=== PATIENT | male | born 1950 | race Caucasian/White ===

== ENCOUNTER 2021-12-28 08:48 | Outpatient (REF) | payer MEDICARE, BC, SELFPAY ==
[2021-12-28 09:15] LABS: COVID-19 Test Negative (Negative)
== END 2021-12-28 08:49 | disposition home or self-care (01) ==
LOC: HO.LAB 08:48
PROVIDERS: Visit Provider Internal Medicine
DX: Z20.822 Contact with and (suspected) exposure to COVID-19 (principal)
CPT/HCPCS: 87635; C9803

== ENCOUNTER 2022-10-09 20:33 | Inpatient (IN) | payer MEDICARE, BC, SELFPAY ==
--- NOTE | ~2022-10-09 | XR_ITS ---
EXAMINATION: XR HIP, RIGHT CLINICAL INFORMATION: Hip pain. Question dislocation COMPARISON: None TECHNIQUE: AP pelvis and 2 views of the right hip. FINDINGS: Displaced right femoral neck fracture with external rotation of the femur. No dislocation. Bilateral hip joint spaces are maintained. No additional fracture. Pubic symphysis and SI joints are congruent and intact. Mild subchondral sclerosis at the SI joints bilaterally. XR/XR hip RT min 2V IMPRESSION: 1. Displaced right femoral neck fracture. 2. No dislocation.
--- NOTE | ~2022-10-09 | XR_ITS ---
EXAMINATION: XR CHEST CLINICAL INFORMATION: Preop for right femoral neck fracture COMPARISON: None TECHNIQUE: Frontal view of the chest was obtained. FINDINGS: Minimal subsegmental atelectasis or pulmonary vascular crowding in the medial left lung base. No airspace consolidation. No pleural effusion or pneumothorax. Normal cardiomediastinal silhouette and pulmonary vascularity. No acute osseous injury identified. XR/XR chest 1V IMPRESSION: No acute pulmonary process.
[2022-10-09 20:42] VITALS: BP 170/80; PULSE 81; RESP 18; TEMP 36.3; O2SAT 98; BMI 26.1
--- NOTE | 2022-10-09 20:54 | ED_ITS ---
HPI - Fall General Chief Complaint: Fall Stated Complaint: Fall Time Seen by Provider: 10/09/22 20:35 Source: patient Mode of arrival: ambulatory Limitations: no limitations History of Present Illness HPI Narrative: This is a 72-year-old male history of GERD, hypertension presenting to the emergency department with complaints of right hip pain status post injury while playing pickleball. Patient tells me that he was diving for a ball and fell on the ground landing on his right hip, he tells me he landed on concrete immediately started experiencing severe pain. Pain is worse with movement better at rest. He tells me that he is unable to lift his right leg, denies numbness or tingling associated with this. When he fell he did not hit his head, not on blood thinners. Reports that the pain is severe in nature 10/10 with movement. Patient unable to ambulate and was helped out of his vehicle. Patient denies fevers, chills, loss of consciousness, chest pain, shortness of breath. Last time patient had something to eat was around 17:00. Patient appears uncomfortable upon arrival. Related Data Allergies Allergy/AdvReac Type Severity Reaction Status Date / Time Unable to Assess Allergy Verified 10/09/22 21:04 Review of Systems Review of Systems: Constitutional : No Weight loss, No Fever, No Chills, No Fatigue, No Malaise ENT/Mouth : No sore throat, No Rhinorrhea Eyes: No Eye Pain, No Swelling, No Redness Cardiovascular : No Chest Pain, No SOB, No Dyspnea on Exertion, No Orthopnea, No Edema, No Palpitations Respiratory : No Cough, No Sputum, No Wheezing Gastrointestinal : No Nausea, No Vomiting, No Diarrhea, No Constipation, No abdominal Pain, No Hematochezia, No Melena Genitourinary : No Dysuria, No Urinary Frequency, No Hematuria, Musculoskeletal : + joint pain, No Myalgias, No Joint Swelling Skin : No Skin Lesions, No rash Neuro : No Weakness, No Numbness, No Dizziness, No Headache Psych : No Anxiety/Panic, No Depression All other systems reviewed and are negative Yes all other systems are reviewed and are negative [facility] Past Medical History Attestation statement: The following information was validated with the patient. Source: old records reviewed and nursing notes reviewed Social History Social History Advance Directives: No Advance Directives Information Provided: No Physical Exam Vital Signs: Vital Signs: Last Vital Signs Temp 98.5 F 10/09/22 21:28 Pulse 77 10/09/22 21:28 Resp 16 10/09/22 21:28 BP 161/80 H 10/09/22 21:28 Pulse Ox 96 10/09/22 21:28 O2 Del Method 10/09/22 21:28 BMI result Body Mass Index 26.1 vss Appearance: Alert.? Oriented X3.? No acute distress.? Head: Normocephalic, atraumatic, no step-offs or deformities Eyes: Pupils equal, round and reactive to light.? ENT: Pharynx normal.? Neck: Normal inspection.? Neck supple.? CVS: Normal heart rate and rhythm.? Pulses normal.? Respiratory: No respiratory distress.? Breath sounds normal.? Abdomen: Soft and nontender.? Skin: Skin warm and dry.? Normal skin color.? Normal skin turgor.? Extremities: No lower extremity edema.? No calf ttp. 5/5 strength to bilateral upper and left lower lower extremity. Unable to assess strength right lower extremity. Patient unable to lift his right lower extremity off the bed. Right lower extremity appears to be externally rotated and shortened. 2+ dorsalis pedis, posterior tibialis, anterior tibialis and popliteal pulses equal bilateral. Normal sensation to lower extremities. Back: No midline tenderness, no C-spine tenderness, full range of motion, no CVA tenderness bilaterally Neuro: Oriented X 3.? No motor deficit.? No sensory deficit. CN 2-12 intact . Normal [id number], [id number], steady tandem gait. Course Reevaluation(s) Reevaluation #1: CBC appears to be within normal limits. Chemistry with no acute electrolyte a bnormalities requiring intervention. Coags do not require intervention. Wet read of x-ray of right hip shows a displaced right femoral neck fracture, no dislocation. Hedrick text to Orthopedics. Time: 21:50 Reevaluation #2: Orthopedics recommends admitting to Medicine, they will follow. At this time placed preop chest x-ray, type and screen orders. Will speak to patient, patient will be admitted to the hospital for further intervention and treatment. Time: 21:55 Medications Administered Discontinued Medications Generic Name Dose Route Start Last Admin Trade Name Freq PRN Reason Stop Dose Admin Morphine Sulfate 4 mg 10/09/22 20:37 10/09/22 21:04 Morphine Sulfate 4 Mg/Ml Cartridge IVPUSH 10/09/22 20:38 4 mg ONCE ONE Administration Protocol MDM - Fall MDM Narrative Medical decision making narrative: 2049 72-year-old male presents with right hip pain status post landing on his hip while playing pickleball. Reports severe pain. On exam 5/5 strength to bilateral upper and left lower lower extremity. Unable to assess strength right lower extremity. Patient unable to lift his right lower extremity off the bed. Right lower extremity appears to be externally rotated and shortened. 2+ dorsalis pedis, posterior tibialis, anterior tibialis and popliteal pulses equal bilateral. Normal sensation to lower extremities. Concerns for possible hip dislocation, anterior. Or pelvic/femoral fracture. Plan at this time is to obtain imaging, laboratory studies, PT INR. Will give him pain meds. Medical Records Attestation: I reviewed the patient's medical records. Lab Data Attestation: I reviewed the patient's lab results. Result diagrams: 10/09/22 21:02 10/09/22 21:02 Labs: Lab Results 10/09/22 10/09/22 10/09/22 Range/Units 21:02 21:02 21:02 WBC 10.3 (4.8-10.8) X10*3/uL RBC 4.76 (4.60-5.80) X10*6/uL Hgb 14.8 (14.0-18.0) g/dl Hct 42.7 (42.0-52.0) % MCV 89.7 (80.0-98.0) fL MCH 31.1 (27.0-33.0) pg MCHC 34.7 (31.0-36.0) g/dl RDW 12.7 (11.0-16.0) % Plt Count 239 (160-400) X10*3/uL MPV 10.1 (9.4-12.4) fL Immature Gran % (Auto) 0.4 (0.0-0.4) % Neut % (Auto) 78.0 H (45-73) % Lymph % (Auto) 13.3 L (20-40) % [place] % (Auto) 7.2 (2-11) % Eos % (Auto) 0.5 (0-4) % Baso % (Auto) 0.6 (0-2) % Lymph # (Auto) 1.4 (1.2-4.9) X10*3/uL [place] # (Auto) 0.7 (0.1-1.2) X10*3/uL Eos # (Auto) 0.1 (0.0-0.4) X10*3/uL Baso # (Auto) 0.1 (0.0-0.2) X10*3/uL Abs Immat Gran (auto) 0.04 H (0.00-0.03) X10*3/uL Absolute Neuts (auto) 8.1 (2.0-8.3) x10*3/uL Absolute Nucleated RBC 0.000 (0.0-0.012) X10*3/uL Nucleated RBC % (auto) 0.0 (0.0-0.2) /100WBC PT 13.2 H (10.0-13.1) SEC INR 1.1 (0.9-1.1) Sodium 141 (135-145) mmol/L Potassium 4.2 (3.3-5.1) mmol/L Chloride 108 (96-108) mmol/L Carbon Dioxide 23 (22-29) mmol/L Anion Gap 14 (12-20) BUN 21 H (9-16) mg/dL Creatinine 1.01 (0.5-1.4) mg/dL Estim Creat Clear Calc 64.1 Estimated GFR > 60 Random Glucose 120 H (60-115) mg/dL Calcium 9.3 (8.4-10.2) mg/dL Magnesium 2.0 (1.6-2.6) mg/dL Total Bilirubin 1.0 (0.0-1.0) mg/dL AST 29 (5-37) U/L ALT 29 (0-40) U/L Alkaline Phosphatase 119 H (39-117) U/L Total Protein 6.8 (6.5-8.0) g/dL Albumin 4.1 (3.5-5.0) g/dL Critical Care Time Critical Care Time Critical Care Time: Yes Total Critical Care Time: 35 Attestation: I attest to this time spent taking care of the patient, obtaining history, physical, reviewing labs, imaging, speaking to my attending, speaking to specialist. Discharge Plan Discharge Clinical Impression: Femoral neck fracture Patient Disposition: Admitted As Inpatient
[2022-10-09 21:04] VITALS: RESP 18
[2022-10-09] MEDS: Morphine Sulfate 4 MG/ML CARTRIDGE IVPUSH (21:04)
[2022-10-09 21:06] LABS: MANUAL DIFF FLAG NO
[2022-10-09 21:12] LABS: Basophils Absolute Auto 0.1 X10*3/uL (0.0-0.2); Basophils Percent Auto 0.6 % (0-2); Eosinophils Absolute Auto 0.1 X10*3/uL (0.0-0.4); Eosinophils Percent Auto 0.5 % (0-4); Hematocrit 42.7 % (42.0-52.0); Hemoglobin 14.8 g/dl (14.0-18.0); Imm Gran Abs Auto 0.04 X10*3/uL (0.00-0.03); Imm Gran Pct Auto 0.4 % (0.0-0.4); Lymphocytes Absolute Auto 1.4 X10*3/uL (1.2-4.9); Lymphocytes Percent Auto 13.3 % (20-40); Mean Corpuscular HGB Conc 34.7 g/dl (31.0-36.0); Mean Corpuscular Hemoglobin 31.1 pg (27.0-33.0); Mean Corpuscular Volume 89.7 fL (80.0-98.0); Mean Platelet Volume 10.1 fL (9.4-12.4); Monocytes Absolute Auto 0.7 X10*3/uL (0.1-1.2); Monocytes Percent Auto 7.2 % (2-11); Neutrophils Absolute Auto 8.1 x10*3/uL (2.0-8.3); Platelet Count 239 X10*3/uL (160-400); Red Blood Count 4.76 X10*6/uL (4.60-5.80); Red Cell Distribution Width 12.7 % (11.0-16.0); White Blood Count 10.3 X10*3/uL (4.8-10.8)
[2022-10-09 21:22] LABS: INTERNATIONAL NORM RATIO 1.1 (0.9-1.1); Prothrombin Time 13.2 SEC (10.0-13.1)
[2022-10-09 21:28] VITALS: BP 161/80; PULSE 77; RESP 16; TEMP 36.9; O2SAT 96
[2022-10-09 21:37] LABS: Alanine Aminotransferase 29 U/L (0-40); Albumin Level 4.1 g/dL (3.5-5.0); Alkaline Phosphatase 119 U/L (39-117); Anion Gap 14 (12-20); Aspartate Amino Transferase 29 U/L (5-37); Blood Urea Nitrogen 21 mg/dL (9-16); Calcium 9.3 mg/dL (8.4-10.2); Carbon Dioxide 23 mmol/L (22-29); Chloride 108 mmol/L (96-108); Creatinine Clr Calc Pharmacy 64.1; Estimated Glomerular Filt Rate > 60; Glucose Random 120 mg/dL (60-115); Potassium 4.2 mmol/L (3.3-5.1); Sodium 141 mmol/L (135-145); Total Protein 6.8 g/dL (6.5-8.0)
[2022-10-09 22:11] LABS: Appearance Urine Clear; Color Urine Yellow; Glucose Urine UA Negative (Negative); Leukocyte Esterase Urine Negative (Negative); Nitrite Urine Negative (Negative); Specific Gravity - Urine 1.015 (1.005-1.025); Urine Blood Negative (Negative); Urine Ketones Negative (Negative); Urine Protein Negative (Neg-Trace)
[2022-10-09 22:27] VITALS: BP 141/74; PULSE 89; RESP 16; TEMP 36.9; O2SAT 98
[2022-10-09] MEDS: HYDROmorphone HCl 1 MG/ML SYRINGE IVPUSH (22:31)
[2022-10-09 23:00] LABS: COVID-19 Test Negative (Negative)
[2022-10-09 23:28] VITALS: BP 139/73; PULSE 90; RESP 16; TEMP 36.9; O2SAT 96
[2022-10-10] VITALS (7 sets, daily range): BP systolic 135–170; BP diastolic 64–82; PULSE 78–88; RESP 16–18; TEMP 36.7–37.3; O2SAT 94–95; BMI 26.9
[2022-10-10] MEDS: 0.9 % Sodium Chloride Flush 3 ML SYRINGE IVFLUSH ×2 (00:49→09:48)
--- NOTE | 2022-10-10 01:54 | PC.NURSE ---
Pt c/o 05/03 pain to R hip and R leg. Sachin HOBSON sent message to Hospitalist regarding ordering pain med. RN reviewed MAR before pt was transported via stretcher to Med Surg. Pain med not order at time of transport.
[2022-10-10] MEDS: Morphine Sulfate 4 MG/ML CARTRIDGE IVPUSH (02:59)
--- NOTE | 2022-10-10 05:16 | PM.IMHP ---
History of Present Illness Date of Service: 10/09/22 Chief Complaint: Fall, hip fracture This is a 72-year-old otherwise healthy male with past medical history of GERD presents to the hospital with complaints of falling while playing pickleball. Patient denies any loss of consciousness, no dizziness or headache, no palpitations prior to fall. He states that he was diving for a ball, and fell on the ground landing on his right hip on concrete. He felt immediate significant pain and felt pain worse with movement. He is unable to lift his right leg, he denies any numbness or tingling, he denies any chest pain, no shortness of breath, no abdominal pain nausea or vomiting, no diarrhea constipation, no urinary symptoms and no lower extremity edema. He has otherwise been healthy and doing well On arrival to the ED patient hemodynamically stable slightly elevated blood pressure Labs reviewed, unremarkable Hip x-ray shows displaced right femoral neck fracture Review of Systems Review of Systems: Yes all other systems are reviewed and are negative [facility] Medical History (Updated 10/10/22 @ 05:21 by Ciaran Mckeon MD) GERD (gastroesophageal reflux disease) Hypertension Family History (Updated 10/10/22 @ 05:20 by Ciaran Mckeon MD) Other Coronary artery disease Surgical History (Updated 10/10/22 @ 05:20 by Ciaran Mckeon MD) No pertinent past surgical history Social History Household Members: Spouse Housing: House Do you presently have visiting nurse or other home services: No Patient Tobacco Use Status: Never used Tobacco Smoked in Last 30 Days: No Second Hand Smoke Exposure: No Use of substances other than those prescribed or required for medical reasons: No Currently Displaying Signs/Symptoms of Drug Intoxication Withdrawal: No Any prior treatment program specific to substance use: No Have you been hit, kicked, punched, or otherwise hurt by someone within the past year? If so, by whom?: No Do you feel safe in your current relationship?: Yes Is there a partner from a previous relationship who is making you feel unsafe now?: No Are you made to feel afraid or neglected: No Advance Directives: No Advance Directives Information Provided: No Do you have thoughts of harming others: None Do you have a plan to hurt others: No Plan Recently lost weight without trying: No Eating poorly because of decreased appetite: No Nutrition Risks: No Nutritional Risk Poor oral hygiene: No Meds Allergies Allergy/AdvReac Type Severity Reaction Status Date / Time Unable to Assess Allergy Verified 10/09/22 21:04 Active Medications: Current Medications Acetaminophen (Acetaminophen 325 Mg Tablet) 650 mg PO Q6H PRN PRN Reason: Pain, Mild (Pain Scale 1-3) Docusate Sodium (Docusate Sodium 100 Mg Capsule) 100 mg PO DAILY PRN PRN Reason: Constipation Morphine Sulfate (Morphine Sulfate 4 Mg/Ml Cartridge) 4 mg IVPUSH Q4H PRN; Protocol PRN Reason: Pain, Severe (Pain Scale 7-10) Last Admin: 10/10/22 02:59 Dose: 4 mg Ondansetron HCl (Ondansetron Hcl 4 Mg/2 Ml Vial) 4 mg IVPUSH Q8H PRN PRN Reason: Nausea and Vomiting Pharmacy Consult (Consult Rx Perform Med Rec) 1 each MISCELLANE ONCE PRN PRN Reason: Consult order Sodium Chloride (0.9 % Sodium Chloride Flush 3 Ml Syringe) 3 ml IVFLUSH [facility] Last Admin: 10/10/22 00:49 Dose: 3 ml Home Medications Medication Instructions Recorded Confirmed Last Taken Type famotidine 20 mg tablet 1 tab PO DAILY 10/09/22 10/09/22 10/09/22 History Physical Exam Vital Signs and Narrative: Vital Signs: Last Vital Signs Temp 98.4 F 10/10/22 02:37 Pulse 84 10/10/22 02:37 Resp 18 10/10/22 04:00 BP 161/74 H 10/10/22 02:37 Pulse Ox 94 10/10/22 02:37 O2 Del Method 10/10/22 02:37 BMI result Body Mass Index 26.9 Const: General: cooperative and no acute distress Orientation/consciousness: patient oriented x3 Eyes: General: appearance normal, both eyes and all related structures Pupils: Equal, round and reactive pupils present Resp: Effort & Inspection: normal respiratory effort Auscultation: clear to auscultation bilaterally Cardio: Rate: regular rate Rhythm: regular rhythm GI: Palpation (GI): Soft to palpation Auscultation: normal bowel sounds Skin: General skin exam: no rashes or lesions noted Neuro: General: patient oriented x3 Cranial nerves: Yes Equal, round and reactive pupils present Cognition (Neuro): normal cognition Extrem: Other: Right leg externally rotated, tender General: Yes normal to inspection and Yes no pedal edema Results Labs CBC and Chem 7: 10/09/22 21:02 10/09/22 21:02 Labs: Laboratory Results - last 24 hr 10/09/22 10/09/22 10/09/22 20:35 21:02 21:02 MCV 89.7 MCH 31.1 MCHC 34.7 RDW 12.7 Plt Count 239 MPV 10.1 Immature Gran % (Auto) 0.4 Neut % (Auto) 78.0 H Lymph % (Auto) 13.3 L [place] % (Auto) 7.2 Eos % (Auto) 0.5 Baso % (Auto) 0.6 Lymph # (Auto) 1.4 [place] # (Auto) 0.7 Eos # (Auto) 0.1 Baso # (Auto) 0.1 Abs Immat Gran (auto) 0.04 H Absolute Neuts (auto) 8.1 Absolute Nucleated RBC 0.000 Nucleated RBC % (auto) 0.0 PT 13.2 H INR 1.1 Anion Gap Estim Creat Clear Calc Estimated GFR Random Glucose Calcium Magnesium Total Bilirubin AST ALT Alkaline Phosphatase Total Protein Albumin Urine Color Urine Appearance Urine pH Ur Specific [place] Urine Protein Urine Glucose (UA) Urine Ketones Urine Blood Urine Nitrite Ur Leukocyte Esterase COVID-19 (GURMEET) Negative COVID-19 Clin Com See Note Blood Type Antibody Screen 10/09/22 10/09/22 10/09/22 21:02 21:55 23:01 MCV MCH MCHC RDW Plt Count MPV Immature Gran % (Auto) Neut % (Auto) Lymph % (Auto) [place] % (Auto) Eos % (Auto) Baso % (Auto) Lymph # (Auto) [place] # (Auto) Eos # (Auto) Baso # (Auto) Abs Immat Gran (auto) Absolute Neuts (auto) Absolute Nucleated RBC Nucleated RBC % (auto) PT INR Anion Gap 14 Estim Creat Clear Calc 64.1 Estimated GFR > 60 Random Glucose 120 H Calcium 9.3 Magnesium 2.0 Total Bilirubin 1.0 AST 29 ALT 29 Alkaline Phosphatase 119 H Total Protein 6.8 Albumin 4.1 Urine Color Yellow Urine Appearance Clear Urine pH 7.0 Ur Specific [place] 1.015 Urine Protein Negative Urine Glucose (UA) Negative Urine Ketones Negative Urine Blood Negative Urine Nitrite Negative Ur Leukocyte Esterase Negative COVID-19 (GURMEET) COVID-19 Clin Com Blood Type Cancelled Antibody Screen Cancelled 10/10/22 00:06 MCV MCH MCHC RDW Plt Count MPV Immature Gran % (Auto) Neut % (Auto) Lymph % (Auto) [place] % (Auto) Eos % (Auto) Baso % (Auto) Lymph # (Auto) [place] # (Auto) Eos # (Auto) Baso # (Auto) Abs Immat Gran (auto) Absolute Neuts (auto) Absolute Nucleated RBC Nucleated RBC % (auto) PT INR Anion Gap Estim Creat Clear Calc Estimated GFR Random Glucose Calcium Magnesium Total Bilirubin AST ALT Alkaline Phosphatase Total Protein Albumin Urine Color Urine Appearance Urine pH Ur Specific [place] Urine Protein Urine Glucose (UA) Urine Ketones Urine Blood Urine Nitrite Ur Leukocyte Esterase COVID-19 (GURMEET) COVID-19 Clin Com Blood Type O Positive Antibody Screen NEGATIVE Imaging Radiologist's Impressions: Impressions Hip X-Ray 10/09/22 20:42 IMPRESSION: 1. Displaced right femoral neck fracture. 2. No dislocation. Chest X-Ray 10/09/22 22:03 IMPRESSION: No acute pulmonary process. Assessment and Plan (1) Femoral neck fracture: Qualifiers: Encounter type: initial encounter Fracture type: closed Laterality: right Qualified Code(s): S72.001A - Fracture of unspecified part of neck of right femur, initial encounter for closed fracture Status: Acute Plan 72-year-old male otherwise healthy presents to the hospital with complaints of hip pain after a fall found to have hip fracture # right femoral neck fracture - secondary to mechanical fall, after diving after a ball on concrete - pain management - NPO after midnight for possible surgical intervention in a.m. - otherwise hemodynamically stable # hypertension - stable - at this time does not take any medications - continues to be hypertensive, consider small dose of amlodipine # GERD - continue famotidine DVT prophylaxis: SCDs in anticipation of surgical intervention Given hip fracture, requirement for intervention by surgery patient require minimum 2 night inpatient hospital stay for further management and evaluation Quality Stroke Does the patient have a stroke diagnosis?: No VTE Prior VTE?: No VTE Risk Level:: Medical - moderate - high VTE Device Contraindication: N/A - Device Ordered VTE Drug Contraindication: Treatment Not Tolerated
[2022-10-10] MEDS: HYDROmorphone HCl 1 MG/ML SYRINGE 0.5 MG IVPUSH ×5 (05:33→22:25)
[2022-10-10] MEDS: ondansetron HCL 4 MG/2 ML VIAL IVPUSH ×3 (05:33→22:24)
[2022-10-10 06:29] LABS: MANUAL DIFF FLAG NO
[2022-10-10 06:39] LABS: Basophils Percent Auto 0.4 % (0-2); Hematocrit 44.3 % (42.0-52.0); Hemoglobin 14.8 g/dl (14.0-18.0); Imm Gran Abs Auto 0.04 X10*3/uL (0.00-0.03); Imm Gran Pct Auto 0.4 % (0.0-0.4); Lymphocytes Absolute Auto 0.8 X10*3/uL (1.2-4.9); Lymphocytes Percent Auto 7.8 % (20-40); Mean Corpuscular HGB Conc 33.4 g/dl (31.0-36.0); Mean Corpuscular Hemoglobin 30.2 pg (27.0-33.0); Mean Corpuscular Volume 90.4 fL (80.0-98.0); Mean Platelet Volume 10.4 fL (9.4-12.4); Monocytes Absolute Auto 0.7 X10*3/uL (0.1-1.2); Monocytes Percent Auto 6.7 % (2-11); Neutrophils Absolute Auto 9.2 x10*3/uL (2.0-8.3); Neutrophils Percent Auto 84.7 % (45-73); Platelet Count 223 X10*3/uL (160-400); Red Cell Distribution Width 12.7 % (11.0-16.0); White Blood Count 10.8 X10*3/uL (4.8-10.8)
--- NOTE | 2022-10-10 06:41 | PC.NURSE ---
PATIENT ADMITTED VIA STRETCHER FROM ED TO ROOM 373 WITH RIGHT FEMORAL HEAD FX. PT NPO FOR POSSIBLE SURGERY. ALERT AND ORIENTED,, ANSWERED ALL QUESTIONS FOR ADMISSION, VOIDING TO BEDSIDE URINAL, LUNG CANCINO CLEAR. MEDICATED WITH IVP MORPHINE AT 0300 FOR 8/10 WITH SOME EFFECT AND SHORT NAP TAKEN. STATED TO HAVE GI UPSET AND DRY HEAVES CLOSE TO 0500, ZOFRAN WITH GOOD EFFECT AND ALSO NEW ORDER FOR IVP DILAUDID FOR PAIN AT 0540 PT THOUGHT MORPHINE MAY HAVE UPSET HIS STOMACH AND DILAUDID WORKED BETTER IN ED SETTING. PAIN GONE AT REST, HOWEVER, 4/10 WITH MOVEMENT. PT STATED WAS TOLERABLE. WILL CONTINUE TO MONITOR
[2022-10-10 08:09] LABS: Anion Gap 13 (12-20); Blood Urea Nitrogen 19 mg/dL (9-16); Calcium 9.2 mg/dL (8.4-10.2); Carbon Dioxide 25 mmol/L (22-29); Chloride 107 mmol/L (96-108); Creatinine Clr Calc Pharmacy 75.3; Estimated Glomerular Filt Rate > 60; Glucose Random 116 mg/dL (60-115); Potassium 4.5 mmol/L (3.3-5.1); Sodium 140 mmol/L (135-145)
--- NOTE | 2022-10-10 08:23 | PM.HPOR ---
History of Present Illness History of Present Illness Date of Service: 10/10/22 Chief complaint: hip fracture Narrative: Ferny Basilio is a 72 year old male PMH of HTN. He states he was playing pickleball when he dove for the ball and fell landing on the right hip. He was unable to get up and weight bear. He was transported to the ED via EMS. Clinical exam and xrays in the ED were significant for femoral neck fracture on the right. He was admitted to the medical service and orthopedics was consulted for further recommendations. Patients is independent with all ADLS, he lives at home with his . He does not use an assitive device for ambulation. He is not on any anticoagulants. Review of Systems Review of Systems: per [facility] Past Medical History Medical History (Updated 10/10/22 @ 05:21 by Ciaran Mckeon MD) GERD (gastroesophageal reflux disease) Hypertension Family History Family History (Updated 10/10/22 @ 05:20 by Ciaran Mckeon MD) Other Coronary artery disease Surgical History Surgical History (Updated 10/10/22 @ 05:20 by Ciaran Mckeon MD) No pertinent past surgical history Social History Social History Household Members: Spouse Housing: House Do you presently have visiting nurse or other home services: No Patient Tobacco Use Status: Never used Tobacco Smoked in Last 30 Days: No Second Hand Smoke Exposure: No Use of substances other than those prescribed or required for medical reasons: No Currently Displaying Signs/Symptoms of Drug Intoxication Withdrawal: No Any prior treatment program specific to substance use: No Have you been hit, kicked, punched, or otherwise hurt by someone within the past year? If so, by whom?: No Do you feel safe in your current relationship?: Yes Is there a partner from a previous relationship who is making you feel unsafe now?: No Are you made to feel afraid or neglected: No Advance Directives: No Advance Directives Information Provided: No Do you have thoughts of harming others: None Do you have a plan to hurt others: No Plan Recently lost weight without trying: No Eating poorly because of decreased appetite: No Nutrition Risks: No Nutritional Risk Poor oral hygiene: No Meds Allergies Allergy/AdvReac Type Severity Reaction Status Date / Time Unable to Assess Allergy Verified 10/09/22 21:04 Active Medications: Current Medications Acetaminophen (Acetaminophen 325 Mg Tablet) 650 mg PO Q6H PRN PRN Reason: Pain, Mild (Pain Scale 1-3) Docusate Sodium (Docusate Sodium 100 Mg Capsule) 100 mg PO DAILY PRN PRN Reason: Constipation Famotidine (Famotidine 20 Mg Tablet) 20 mg PO DAILY [facility] Hydromorphone HCl (Hydromorphone Hcl 1 Mg/Ml Syringe) 0.5 mg IVPUSH Q4H PRN; Protocol PRN Reason: Pain, Severe (Pain Scale 7-10) Last Admin: 10/10/22 05:33 Dose: 0.5 mg Ondansetron HCl (Ondansetron Hcl 4 Mg/2 Ml Vial) 4 mg IVPUSH Q8H PRN PRN Reason: Nausea and Vomiting Last Admin: 10/10/22 05:33 Dose: 4 mg Pharmacy Consult (Consult Rx Perform Med Rec) 1 each MISCELLANE ONCE PRN PRN Reason: Consult order Sodium Chloride (0.9 % Sodium Chloride Flush 3 Ml Syringe) 3 ml IVFLUSH QSHIFT [facility] Last Admin: 10/10/22 00:49 Dose: 3 ml Home Medications Medication Instructions Recorded Confirmed Last Taken Type famotidine 20 mg tablet 1 tab PO DAILY 10/09/22 10/09/22 10/09/22 History Physical Exam Vital Signs: Vital Signs: Last Vital Signs Temp 98.5 F 10/10/22 08:00 Pulse 88 10/10/22 08:00 Resp 17 10/10/22 08:00 BP 162/79 H 10/10/22 08:00 Pulse Ox 95 10/10/22 08:00 O2 Del Method 10/10/22 08:00 BMI result Body Mass Index 26.9 Const: General: cooperative, healthy appearing, comfortable, no acute distress, well developed and alert Orientation/consciousness: patient oriented x3 HEENT: Head: Yes normal to inspection, Yes normocephalic and Yes atraumatic Eyes: General: appearance normal, both eyes and all related structures Neck: Neck: Yes normal visual inspection and Yes no lymphadenopathy Resp: Effort & Inspection: normal respiratory effort and able to speak in complete sentences Cardio: Rate: regular rate Peripheral pulses: Peripheral pulses 2+ throughout GI: Inspection: Yes normal to inspection Palpation (GI): Soft to palpation Skin: General skin exam: no rashes or lesions noted Neuro: General: patient oriented x3 Extrem: Other: Right hip normal to inspection, no open wounds. There is pain with log roll, unable to SLR. NVI. Psych: Appearance: grossly normal Mental Status: mental status grossly normal Results Labs Result Diagrams: 10/10/22 05:30 10/10/22 05:30 Labs: Abnormal lab results 10/09/22 10/09/22 10/09/22 Range/Units 21:02 21:02 21:02 Neut % (Auto) 78.0 H (45-73) % Lymph % (Auto) 13.3 L (20-40) % Lymph # (Auto) (1.2-4.9) X10*3/uL Abs Immat Gran (auto) 0.04 H (0.00-0.03) X10*3/uL Absolute Neuts (auto) (2.0-8.3) x10*3/uL PT 13.2 H (10.0-13.1) SEC BUN 21 H (9-16) mg/dL Random Glucose 120 H (60-115) mg/dL Alkaline Phosphatase 119 H (39-117) U/L 10/10/22 10/10/22 Range/Units 05:30 05:30 Neut % (Auto) 84.7 H (45-73) % Lymph % (Auto) 7.8 L (20-40) % Lymph # (Auto) 0.8 L (1.2-4.9) X10*3/uL Abs Immat Gran (auto) 0.04 H (0.00-0.03) X10*3/uL Absolute Neuts (auto) 9.2 H (2.0-8.3) x10*3/uL PT (10.0-13.1) SEC BUN 19 H (9-16) mg/dL Random Glucose 116 H (60-115) mg/dL Alkaline Phosphatase (39-117) U/L H & H 10/09/22 10/10/22 Range/Units 21:02 05:30 Hgb 14.8 14.8 (14.0-18.0) g/dl Hct 42.7 44.3 (42.0-52.0) % Coagulation 10/09/22 Range/Units 21:02 INR 1.1 (0.9-1.1) All other labs normal. Diagnostic results Hip x-ray: image reviewed (femoral neck fracture right ) Assessment and Plan (1) Femoral neck fracture: Qualifiers: Encounter type: initial encounter Fracture type: closed Laterality: right Qualified Code(s): S72.001A - Fracture of unspecified part of neck of right femur, initial encounter for closed fracture Status: Acute Plan I discussed the case with Dr Alvarez and explained the extent of the injury to the patient and options available which include surgical intervention. I explained the procedure in detail along with the length of recovery and rehab course. I explained the risk, benefits and alternatives. Risk including, but not limited to infection, blood clots, bleeding, non union or malunion and nerve/tissue damage to surrounding areas. I answered all their questions and with their understanding they have consented to move forward with Operative Fixation of the right hip . The patient will be T&S, med clearance obtained and remain NPO. Quality Stroke Does the patient have a stroke diagnosis?: No VTE Prior VTE?: No VTE Risk Level:: Medical - moderate - high VTE Device Contraindication: N/A - Device Ordered VTE Drug Contraindication: Treatment Not Tolerated Procedures Date of Service Date of Service: 10/10/22
[2022-10-10 08:30] LABS: Thyroid Stimulating Hormone 0.82 uIU/mL (0.32-4.0)
[2022-10-10] MEDS: Famotidine 20 MG TABLET PO (09:47)
[2022-10-10] MEDS: Acetaminophen 325 MG TABLET 650 MG PO (09:47)
[2022-10-10] MEDS: amLODIPine Besylate 2.5 MG TABLET PO (10:52)
[2022-10-10] MEDS: Lactated Ringers 500 ML 80 ML IV (10:54)
--- NOTE | 2022-10-10 11:40 | P.EN_ITS ---
Event Note Date of Service: 10/11/22 Event Note: 72-year-old of male came with hip fracture, history of hypertension not on any med at home. seen and examined by hospitalist team this morning seen and examined again- denies any new complaint except still as a pain. physical exam: Unchanged from H&P assessment and plan coordinated in H&P note patient denies any history of diabetes, CVA,cad ,CKD, functional status is also good- was walking fine and able to climb 4 flights of stairs without any symptoms. Patient is intermediate risk for given surgical procedure blood pressure probably suboptimal secondary to pain pain medication adjusted, added a gentle hydration, will add small dose amlodi pine if needed for blood pressure.
--- NOTE | 2022-10-10 11:44 | MHC.CM.PN ---
IMM DELIVERED CM MET WITH PT AND SPOUSE VÍCTOR. LIVES IN A SINGLE FAMILY HOME WITH SPOUSE. INDEPENDENT AT BASELINE. NO DME OR SERVICES PRIOR. +HCP, WILL BRING IN A COPY. +COVID VAX X4. PCP DR. BAILEY FELIPE. PT PREF[place] HOME SERVICES [place] AND WOULD LIKE A REFERRAL MADE TO [facility]. DP: HOME WITH NEW [facility] [place], SPOUSE WILL TRANSPORT
--- NOTE | 2022-10-10 16:25 | PHA.MEDREC ---
Pharmacy Consult ? Medication Reconciliation Pharmacy has completed the medication reconciliation. Med rec attempted on 10/09/22, both pt and his were unsure about what medications he took. I called [facility] and confirmed that he picked up atorvastatin 10mg on 09/23/22. Pt told previous [facility] that he takes a blood pressure medication however nothing in his claim history eludes to that, so we believe he may be confusing his cholesterol medication with blood pressure medication. Pt was also able to name pepcid when med rec originally attempted.
[2022-10-10] MEDS: Metoclopramide HCl 10 MG/2 ML VIAL 5 MG IVPUSH (18:08)
[2022-10-10] MEDS: Lactated Ringers 1,000 ML 80 ML IVCONT (18:35)
[2022-10-10] MEDS: Docusate Sodium 100 MG CAPSULE PO (22:24)
[2022-10-10] MEDS: Sennosides 8.6 MG TABLET PO (22:24)
[2022-10-11] VITALS (15 sets, daily range): BP systolic 132–166; BP diastolic 64–82; PULSE 64–81; RESP 13–18; TEMP 36.4–37.8; O2SAT 91–97
[2022-10-11] MEDS: HYDROmorphone HCl 1 MG/ML SYRINGE 0.5 MG IVPUSH ×5 (02:32→22:16)
[2022-10-11] MEDS: Lactated Ringers 1,000 ML 80 ML IVCONT ×2 (05:43→18:48)
[2022-10-11] MEDS: amLODIPine Besylate 2.5 MG TABLET PO (10:49)
[2022-10-11] MEDS: Famotidine 20 MG TABLET PO (10:49)
--- NOTE | 2022-10-11 13:50 | P.CONAN_ITS ---
HPI - Anesthesia Eval Consult details Narrative: rt. femur fracture PMFSH Active Problems Active Problems: All Active Problems (Updated 10/10/22 @ 05:21 by Ciaran Mckeon MD) Femoral neck fracture (Acute) Past Medical History Medical History (Updated 10/11/22 @ 13:51 by Peterson Mckinney MD) GERD (gastroesophageal reflux disease) Hyperlipidemia Hypertension Family History Family History (Updated 10/10/22 @ 05:20 by Ciaran Mckeon MD) Other Coronary artery disease Family history of problems with anesthesia: No Surgical History Surgical History (Updated 10/10/22 @ 05:20 by Ciaran Mckeon MD) No pertinent past surgical history History of Problems with Anesthesia: No Social History Social History Household Members: Spouse Housing: House Do you presently have visiting nurse or other home services: No Patient Tobacco Use Status: Never used Tobacco Smoked in Last 30 Days: No Second Hand Smoke Exposure: No Use of substances other than those prescribed or required for medical reasons: No Currently Displaying Signs/Symptoms of Drug Intoxication Withdrawal: No Any prior treatment program specific to substance use: No Have you been hit, kicked, punched, or otherwise hurt by someone within the past year? If so, by whom?: No Do you feel safe in your current relationship?: Yes Is there a partner from a previous relationship who is making you feel unsafe now?: No Are you made to feel afraid or neglected: No Are you DNR?: No Advance Directives: No Advance Directives Information Provided: No Do you have thoughts of harming others: None Do you have a plan to hurt others: No Plan Recently lost weight without trying: No Eating poorly because of decreased appetite: No Nutrition Risks: No Nutritional Risk Poor oral hygiene: No service: No Current occupational status: retired Meds Allergies Allergy/AdvReac Type Severity Reaction Status Date / Time No Known Allergies Allergy Verified 10/11/22 13:16 Active Medications: Current Medications Acetaminophen (Acetaminophen 325 Mg Tablet) 650 mg PO Q6H PRN PRN Reason: Pain, Mild (Pain Scale 1-3) Last Admin: 10/10/22 09:47 Dose: 650 mg Amlodipine Besylate (Amlodipine Besylate 2.5 Mg Tablet) 2.5 mg PO DAILY [facility]; Protocol Last Admin: 10/11/22 10:49 Dose: 2.5 mg Docusate Sodium (Docusate Sodium 100 Mg Capsule) 100 mg PO DAILY PRN PRN Reason: Constipation Docusate Sodium (Docusate Sodium 100 Mg Capsule) 100 mg PO BEDTIME [facility] Last Admin: 10/10/22 22:24 Dose: 100 mg Famotidine (Famotidine 20 Mg Tablet) 20 mg PO DAILY [facility] Last Admin: 10/11/22 10:49 Dose: 20 mg Hydromorphone HCl (Hydromorphone Hcl 1 Mg/Ml Syringe) 0.5 mg IVPUSH Q3H PRN; Protocol PRN Reason: Pain, Severe (Pain Scale 7-10) Last Admin: 10/11/22 10:49 Dose: 0.5 mg Lactated Ringer's (Lr) 1,000 mls @ 80 mls/hr IVCONT .[id number] [facility] Last Admin: 10/11/22 05:43 Dose: 80 mls/hr Metoclopramide HCl (Metoclopramide Hcl 10 Mg/2 Ml Vial) 5 mg IVPUSH Q6H PRN PRN Reason: Nausea Last Admin: 10/10/22 18:08 Dose: 5 mg Ondansetron HCl (Ondansetron Hcl 4 Mg/2 Ml Vial) 4 mg IVPUSH Q8H PRN PRN Reason: Nausea and Vomiting Last Admin: 10/10/22 22:24 Dose: 4 mg Pharmacy Consult (Consult Rx Perform Med Rec) 1 each MISCELLANE ONCE PRN PRN Reason: Consult order Senna (Sennosides 8.6 Mg Tablet) 8.6 mg PO BEDTIME [facility] Last Admin: 10/10/22 22:24 Dose: 8.6 mg Sodium Chloride (0.9 % Sodium Chloride Flush 3 Ml Syringe) 3 ml IVFLUSH QSHIFT [facility] Last Admin: 10/11/22 09:36 Dose: Not Given Home Medications Medication Instructions Recorded Confirmed Last Taken Type famotidine 20 mg tablet 1 tab PO DAILY 10/09/22 10/09/22 10/09/22 History atorvastatin 10 mg tablet 1 tab PO DAILY 10/10/22 10/10/22 Unknown History Exam Exam Date and Time: October 11, 2022 1350 Height,Weight and Vital Signs: Height 5 ft 9 in Weight 82.8 kg Last Vital Signs Temp 98.6 F 10/11/22 13:25 Pulse 81 10/11/22 13:25 Resp 18 10/11/22 13:25 BP 146/74 H 10/11/22 13:25 Pulse Ox 94 10/11/22 13:25 O2 Del Method 10/11/22 13:25 Pertinent Lab Results Pertinent Lab Results: Laboratory Tests 10/09/22 10/09/22 10/09/22 20:35 21:02 21:02 WBC 10.3 RBC 4.76 Hgb 14.8 Hct 42.7 MCV 89.7 MCH 31.1 MCHC 34.7 RDW 12.7 Plt Count 239 MPV 10.1 Immature Gran % (Auto) 0.4 Neut % (Auto) 78.0 H Lymph % (Auto) 13.3 L Peach % (Auto) 7.2 Eos % (Auto) 0.5 Baso % (Auto) 0.6 Lymph # (Auto) 1.4 Peach # (Auto) 0.7 Eos # (Auto) 0.1 Baso # (Auto) 0.1 Abs Immat Gran (auto) 0.04 H Absolute Neuts (auto) 8.1 Absolute Nucleated RBC 0.000 Nucleated RBC % (auto) 0.0 PT 13.2 H INR 1.1 Sodium Potassium Chloride Carbon Dioxide Anion Gap BUN Creatinine Estim Creat Clear Calc Estimated GFR Random Glucose Calcium Magnesium Total Bilirubin AST ALT Alkaline Phosphatase Total Protein Albumin TSH Urine Color Urine Appearance Urine pH Ur Specific [place] Urine Protein Urine Glucose (UA) Urine Ketones Urine Blood Urine Nitrite Ur Leukocyte Esterase COVID-19 ([facility]) Negative COVID-19 Clin Com See Note Blood Type Antibody Screen 10/09/22 10/09/22 10/09/22 21:02 21:55 23:01 WBC RBC Hgb Hct MCV MCH MCHC RDW Plt Count MPV Immature Gran % (Auto) Neut % (Auto) Lymph % (Auto) Peach % (Auto) Eos % (Auto) Baso % (Auto) Lymph # (Auto) Peach # (Auto) Eos # (Auto) Baso # (Auto) Abs Immat Gran (auto) Absolute Neuts (auto) Absolute Nucleated RBC Nucleated RBC % (auto) PT INR Sodium 141 Potassium 4.2 Chloride 108 Carbon Dioxide 23 Anion Gap 14 BUN 21 H Creatinine 1.01 Estim Creat Clear Calc 64.1 Estimated GFR > 60 Random Glucose 120 H Calcium 9.3 Magnesium 2.0 Total Bilirubin 1.0 AST 29 ALT 29 Alkaline Phosphatase 119 H Total Protein 6.8 Albumin 4.1 TSH Urine Color Yellow Urine Appearance Clear Urine pH 7.0 Ur Specific [place] 1.015 Urine Protein Negative Urine Glucose (UA) Negative Urine Ketones Negative Urine Blood Negative Urine Nitrite Negative Ur Leukocyte Esterase Negative COVID-19 ([facility]) COVID-19 Clin [facility] Blood Type Cancelled Antibody Screen Cancelled 10/10/22 10/10/22 10/10/22 00:06 05:30 05:30 WBC 10.8 RBC 4.90 Hgb 14.8 Hct 44.3 MCV 90.4 MCH 30.2 MCHC 33.4 RDW 12.7 Plt Count 223 MPV 10.4 Immature Gran % (Auto) 0.4 Neut % (Auto) 84.7 H Lymph % (Auto) 7.8 L [place] % (Auto) 6.7 Eos % (Auto) 0.0 Baso % (Auto) 0.4 Lymph # (Auto) 0.8 L [place] # (Auto) 0.7 Eos # (Auto) 0.0 Baso # (Auto) 0.0 Abs Immat Gran (auto) 0.04 H Absolute Neuts (auto) 9.2 H Absolute Nucleated RBC 0.000 Nucleated RBC % (auto) 0.0 PT INR Sodium 140 Potassium 4.5 Chloride 107 Carbon Dioxide 25 Anion Gap 13 BUN 19 H Creatinine 0.86 Estim Creat Clear Calc 75.3 Estimated GFR > 60 Random Glucose 116 H Calcium 9.2 Magnesium Total Bilirubin AST ALT Alkaline Phosphatase Total Protein Albumin TSH Urine Color Urine Appearance Urine pH Ur Specific [place] Urine Protein Urine Glucose (UA) Urine Ketones Urine Blood Urine Nitrite Ur Leukocyte Esterase COVID-19 ([facility]) COVID-19 Clin Com Blood Type O Positive Antibody Screen NEGATIVE 10/10/22 05:30 WBC RBC Hgb Hct MCV MCH MCHC RDW Plt Count MPV Immature Gran % (Auto) Neut % (Auto) Lymph % (Auto) Peach % (Auto) Eos % (Auto) Baso % (Auto) Lymph # (Auto) Peach # (Auto) Eos # (Auto) Baso # (Auto) Abs Immat Gran (auto) Absolute Neuts (auto) Absolute Nucleated RBC Nucleated RBC % (auto) PT INR Sodium Potassium Chloride Carbon Dioxide Anion Gap BUN Creatinine Estim Creat Clear Calc Estimated GFR Random Glucose Calcium Magnesium Total Bilirubin AST ALT Alkaline Phosphatase Total Protein Albumin TSH 0.82 Urine Color Urine Appearance Urine pH Ur Specific [place] Urine Protein Urine Glucose (UA) Urine Ketones Urine Blood Urine Nitrite Ur Leukocyte Esterase COVID-19 ([facility]) COVID-19 Clin Com Blood Type Antibody Screen Airway Mallampati Class: II TM Dist: >3cm Partial: Lower Heart: RRR Lungs: CTA Assessment and Plan Assessment Anesthesia Assessment: Anesthesia Plan Discussed and Chart Reviewed Final Anesthetic Review Family History of Problems with Anesthesia: No History of Problems with Anesthesia: No NPO: Yes ASA Class: II Final Preanesthetic Review: No Changes in Pt Med Stat, Meds/Allgs Chart Reviewed and Anes Risks/Benef Reviewed Patient Risk: Intermediate Procedure Risk: Intermediate Anesthetic Plan Anesthetic Plan: GA Disposition: Standard PACU
--- NOTE | 2022-10-11 15:22 | PM.OP ---
Brief Operative Note Date of Service: 10/11/22 Pre-op diagnosis: Right femoral neck frcture Post-op diagnosis: same Procedure: Right hip boby Implants: [place] Accolade2 127 deg #6 with + 4 bipolar Surgeon: Placido Alvarez MD Anesthesia: GETA and local Was an Storm Window Installer used for this Procedure?: Yes Storm Window Installer: Epifanio Rogers Estimated blood loss (mL): 150 IV fluids (mL): 1,000 Pathology: other Condition: stable Disposition: PACU
--- NOTE | 2022-10-11 15:26 | P.PNIM_ITS ---
Subjective Subjective Date of Service: 10/11/22 Interval History: hip fracture, htn Review of Systems still has hip soreness, nausea vomiting seems to be improved is thought to be secondary to pain medications. Denies any chest pain or shortness of breath Physical Exam Vital Signs: Vital Signs: Last Vital Signs Temp 98.6 F 10/11/22 13:25 Pulse 81 10/11/22 13:25 Resp 18 10/11/22 13:25 BP 146/74 H 10/11/22 13:25 Pulse Ox 94 10/11/22 13:25 O2 Del Method 10/11/22 13:25 BMI result Body Mass Index 26.9 Appearance: Alert.? Oriented X3.? not in distress.? cvs: rrr, [id number] , no murmur res: clear to auscultation ,no rhonchii or wheezing abd: no rebound or guarding ,nt, bs present. ext pulses present , no cyanosis . right hip pain-improvin neuro: axo3 , nonfocal. Objective Data Active Medications Acetaminophen (Acetaminophen 325 Mg Tablet) 650 mg PO Q6H PRN PRN Reason: Pain, Mild (Pain Scale 1-3) Last Admin: 10/10/22 09:47 Dose: 650 mg Documented By: KENYETTA Amlodipine Besylate (Amlodipine Besylate 2.5 Mg Tablet) 2.5 mg PO DAILY [facility]; Protocol Last Admin: 10/11/22 10:49 Dose: 2.5 mg Documented By: ABNER Docusate Sodium (Docusate Sodium 100 Mg Capsule) 100 mg PO DAILY PRN PRN Reason: Constipation Docusate Sodium (Docusate Sodium 100 Mg Capsule) 100 mg PO BEDTIME [facility] Last Admin: 10/10/22 22:24 Dose: 100 mg Documented By: DOROTHY Famotidine (Famotidine 20 Mg Tablet) 20 mg PO DAILY [facility] Last Admin: 10/11/22 10:49 Dose: 20 mg Documented By: ABNER Fentanyl (Fentanyl Citrate/Pf 100 Mcg/2 Ml Vial) 50 mcg IVPUSH Q5M PRN; Protocol PRN Reason: Pain, Severe (Pain Scale 7-10) Hydromorphone HCl (Hydromorphone Hcl 1 Mg/Ml Syringe) 0.5 mg IVPUSH Q3H PRN; Protocol PRN Reason: Pain, Severe (Pain Scale 7-10) Last Admin: 10/11/22 10:49 Dose: 0.5 mg Documented By: ABNER Hydromorphone HCl (Hydromorphone Hcl 1 Mg/Ml Syringe) 0.5 mg IVPUSH Q5M PRN; Protocol PRN Reason: Pain, Severe (Pain Scale 7-10) Lactated Ringer's (Lr) 1,000 mls @ 80 mls/hr IVCONT .[id number] [facility] Last Admin: 10/11/22 05:43 Dose: 80 mls/hr Documented By: REYNA Promethazine HCl 12.5 mg/ (Sodium Chloride) 50.5 mls @ 202 mls/hr IV ONCE PRN PRN Reason: Nausea and Vomiting Metoclopramide HCl (Metoclopramide Hcl 10 Mg/2 Ml Vial) 5 mg IVPUSH Q6H PRN PRN Reason: Nausea Last Admin: 10/10/22 18:08 Dose: 5 mg Documented By: KENYETTA Ondansetron HCl (Ondansetron Hcl 4 Mg/2 Ml Vial) 4 mg IVPUSH Q8H PRN PRN Reason: Nausea and Vomiting Last Admin: 10/10/22 22:24 Dose: 4 mg Documented By: DOROTHY Oxycodone HCl (Oxycodone Hcl Immed Release 5 Mg Tablet) 10 mg PO ONCE PRN PRN Reason: Pain, Severe (Pain Scale 7-10) Pharmacy Consult (Consult Rx Perform Med Rec) 1 each MISCELLANE ONCE PRN PRN Reason: Consult order Senna (Sennosides 8.6 Mg Tablet) 8.6 mg PO BEDTIME [facility] Last Admin: 10/10/22 22:24 Dose: 8.6 mg Documented By: DOROTHY Sodium Chloride (0.9 % Sodium Chloride Flush 3 Ml Syringe) 3 ml IVFLUSH QSHIFT [facility] Last Admin: 10/11/22 09:36 Dose: Not Given Documented By: ABNER Non-Admin Reason: IV Running Labs CBC & Chem 7: 10/10/22 05:30 10/10/22 05:30 Assessment and Plan (1) Femoral neck fracture: Status: Acute (2) HTN (hypertension): Status: Acute (3) Nausea & vomiting: Status: Acute Plan 72-year-old male otherwise healthy presents to the hospital with complaints of hip pain after a fall found to have hip fracture # right femoral neck fracture- secondary to mechanical fall, after diving after a ball on concrete - pain management ?- NPO, going for surgery - otherwise hemodynamically stable # hypertension - stable - at this time does not take any medications added small dose of amlodipine # GERD - continue famotidine nausea/vomiting(possible related to pain meds.: seems improving with antiemetics) DVT prophylaxis:? SCDs in anticipation of surgical intervention ongoing hospitilisation need:Given hip fracture-honey to OR ,need monitering Quality Stroke Does the patient have a stroke diagnosis?: No VTE Prior VTE?: No VTE Risk Level:: Medical - moderate - high VTE Device Contraindication: N/A - Device Ordered VTE Drug Contraindication: Treatment Not Tolerated
[2022-10-11] MEDS: Sennosides 8.6 MG TABLET PO (20:32)
[2022-10-11] MEDS: Docusate Sodium 100 MG CAPSULE PO (20:32)
[2022-10-12] VITALS (7 sets, daily range): BP systolic 137–166; BP diastolic 65–75; PULSE 70–87; RESP 16–20; TEMP 36.4–36.8; O2SAT 93–96
[2022-10-12] MEDS: HYDROmorphone HCl 1 MG/ML SYRINGE 0.5 MG IVPUSH ×7 (01:53→21:59)
[2022-10-12 07:04] LABS: Anion Gap 12 (12-20); Blood Urea Nitrogen 21 mg/dL (9-16); Calcium 8.4 mg/dL (8.4-10.2); Carbon Dioxide 26 mmol/L (22-29); Chloride 103 mmol/L (96-108); Estimated Glomerular Filt Rate > 60; Glucose Random 97 mg/dL (60-115); Potassium 4.4 mmol/L (3.3-5.1); Sodium 137 mmol/L (135-145)
[2022-10-12] MEDS: Famotidine 20 MG TABLET PO (07:49)
[2022-10-12] MEDS: amLODIPine Besylate 2.5 MG TABLET PO (07:49)
[2022-10-12] MEDS: Lactated Ringers 1,000 ML 80 ML IVCONT (07:49)
[2022-10-12] MEDS: Atorvastatin Calcium 10 MG TABLET PO (07:50)
[2022-10-12 09:07] LABS: Hematocrit 39.2 % (42.0-52.0); Hemoglobin 13.2 g/dl (14.0-18.0)
--- NOTE | 2022-10-12 09:15 | P.PNOP_ITS ---
Subjective Subjective Date of Service: 10/12/22 Interval history: POD1 s/p right hip boby. Patient is resting in bed comfortably. No overnight events. Pain is well managed. No additional compaints. Physical Exam Vital Signs: Vital Signs: Last Vital Signs Temp 98.1 F 10/12/22 07:31 Pulse 82 10/12/22 07:31 Resp 16 10/12/22 07:31 BP 139/67 10/12/22 07:31 Pulse Ox 95 10/12/22 07:31 O2 Del Method 10/12/22 07:31 O2 Flow Rate 2 10/11/22 19:16 BMI result Body Mass Index 26.9 Const: General: cooperative, healthy appearing and no acute distress Resp: Effort & Inspection: normal respiratory effort and able to speak in complete sentences Cardio: Rate: regular rate Peripheral pulses: Peripheral pulses 2+ throughout GI: Palpation (GI): Soft to palpation Skin: Lesions: no lesions Rashes: no rashes Extrem: Other: Right hip Aquacel is c/d/i. Able to dorsiflex and plantarflex. NVI. Procedures Date of Service Date of Service: 10/12/22 Progress Note: A&P Assessment and plan (1) S/P hip hemiarthroplasty: Status: Acute Assessment and Plan: Continue pain mgmnt Begin Lovenox for dvt ppx begin PT for rt hip boby - WBAT Dispo planning-Pending PT eval, pain mgmnt - pt. reports he was accepted at [facility] for Friday (2) Femoral neck fracture: Status: Acute Time Spent With Patient Time: Total time spent is greater than 50% in coordination of care (as documented) at patient's floor/unit and/or counseling patient: Quality Stroke Does the patient have a stroke diagnosis?: No VTE Prior VTE?: No VTE Risk Level:: Medical - moderate - high VTE Device Contraindication: N/A - Device Ordered VTE Drug Contraindication: Treatment Not Tolerated
--- NOTE | 2022-10-12 09:25 | HO.POSTANES ---
Post Anesthesia Evaluation Post Anesthesia Evaluation Vital Signs: Vital Signs Temp Pulse Resp BP Pulse Ox O2 Del Method 10/12/22 07:31 98.1 F 82 16 139/67 95 Room Air 10/12/22 04:00 97.8 F 72 16 154/72 H 94 Room Air 10/11/22 23:35 98.1 F 64 14 132/65 93 Room Air 10/11/22 22:16 18 Anesthesia: General LMA Mental Status: Awake Pain Control: Satisfactory Nausea/Vomiting: None Hydration: Adequate Anesthesia-Related Issues: No Anes. Related Issues
[2022-10-12 09:34] LABS: Estimated Average Glucose 103 mg/dL; Hemoglobin A1c % 5.2 %
--- NOTE | 2022-10-12 13:01 | HO.PM.IMPN ---
Subjective Subjective Date of Service: 10/12/22 Interval History: hip fracture, htn Review of Systems Hip soreness seems somewhat improving, denies any chest pain or shortness of breath or abdominal pain or fever chills. Physical Exam Vital Signs: Vital Signs: Last Vital Signs Temp 97.6 F 10/12/22 12:00 Pulse 82 10/12/22 12:30 Resp 20 10/12/22 12:00 BP 137/67 10/12/22 12:30 Pulse Ox 93 10/12/22 12:30 O2 Del Method 10/12/22 12:00 O2 Flow Rate 2 10/11/22 19:16 BMI result Body Mass Index 26.9 ? Appearance: Alert.? Oriented X3.? not in distress.? cvs: rrr, [id number] . res: clear to auscultation ,no rhonchii or wheezing abd: no rebound or guarding ,nt, bs present. ext pulses present , no cyanosis . right hip pain-improvin,area is clean ,no dischage. neuro: axo3 , nonfocal. Objective Data Active Medications Acetaminophen (Acetaminophen 325 Mg Tablet) 650 mg PO Q6H PRN PRN Reason: Pain, Mild (Pain Scale 1-3) Last Admin: 10/10/22 09:47 Dose: 650 mg Documented By: KENYETTA Amlodipine Besylate (Amlodipine Besylate 2.5 Mg Tablet) 2.5 mg PO DAILY [facility]; Protocol Last Admin: 10/12/22 07:49 Dose: 2.5 mg Documented By: SHAAN Atorvastatin Calcium (Atorvastatin Calcium 10 Mg Tablet) 10 mg PO DAILY [facility] Last Admin: 10/12/22 07:50 Dose: 10 mg Documented By: SHAAN Docusate Sodium (Docusate Sodium 100 Mg Capsule) 100 mg PO DAILY PRN PRN Reason: Constipation Docusate Sodium (Docusate Sodium 100 Mg Capsule) 100 mg PO BEDTIME [facility] Last Admin: 10/11/22 20:32 Dose: 100 mg Documented By: JALEN Enoxaparin Sodium (Enoxaparin Sodium 40 Mg/0.4 Ml Syringe) 40 mg SUBCUT Q24H [facility] Famotidine (Famotidine 20 Mg Tablet) 20 mg PO DAILY [facility] Last Admin: 10/12/22 07:49 Dose: 20 mg Documented By: SHAAN Hydromorphone HCl (Hydromorphone Hcl 1 Mg/Ml Syringe) 0.5 mg IVPUSH Q3H PRN; Protocol PRN Reason: Pain, Severe (Pain Scale 7-10) Last Admin: 10/12/22 11:32 Dose: 0.5 mg Documented By: SHAAN Lactated Ringer's (Lr) 1,000 mls @ 80 mls/hr IVCONT .[id number] [facility] Last Admin: 10/12/22 07:49 Dose: 80 mls/hr Documented By: SHAAN Cefazolin Sodium/Dextrose (Ancef) 2 gm in 50 mls @ 100 mls/hr IV POSTOP [facility] Metoclopramide HCl (Metoclopramide Hcl 10 Mg/2 Ml Vial) 5 mg IVPUSH Q6H PRN PRN Reason: Nausea Last Admin: 10/10/22 18:08 Dose: 5 mg Documented By: KENYETTA Ondansetron HCl (Ondansetron Hcl 4 Mg/2 Ml Vial) 4 mg IVPUSH Q8H PRN PRN Reason: Nausea and Vomiting Last Admin: 10/10/22 22:24 Dose: 4 mg Documented By: DOROTHY Pharmacy Consult (Consult Rx Perform Med Rec) 1 each MISCELLANE ONCE PRN PRN Reason: Consult order Senna (Sennosides 8.6 Mg Tablet) 8.6 mg PO BEDTIME [facility] Last Admin: 10/11/22 20:32 Dose: 8.6 mg Documented By: JALEN Sodium Chloride (0.9 % Sodium Chloride Flush 3 Ml Syringe) 3 ml IVFLUSH QSHIFT [facility] Last Admin: 10/12/22 07:50 Dose: Not Given Documented By: SHAAN Non-Admin Reason: IV Running Labs CBC & Chem 7: 10/12/22 06:02 10/12/22 06:02 Labs: Laboratory Results - last 24 hr 10/12/22 10/12/22 06:02 06:02 Anion Gap 12 Estim Creat Clear Calc 80.0 Estimated GFR > 60 Random Glucose 97 Estimat Average Glucose 103 Hemoglobin A1c % 5.2 Calcium 8.4 D Assessment and Plan (1) Femoral neck fracture: Status: Acute (2) HTN (hypertension): Status: Acute (3) Nausea & vomiting: Status: Acute Plan 72-year-old male otherwise healthy presents to the hospital with complaints of hip pain after a fall found to have hip fracture # right femoral neck fracture- secondary to mechanical fall, after diving after a ball on concrete - pain management ?s/p surgery bowel regimen - otherwise hemodynamically stable # hypertension - stable - at this time does not take any medications continue amlodipine # GERD - continue famotidine nausea/vomiting(possible related to pain meds.: seems improving with antiemetics) DVT prophylaxis:? SCDs in anticipation of surgical intervention ongoing hospitilisation need:Given hip fracture-[place] to [place] ,need monitering Quality Stroke Does the patient have a stroke diagnosis?: No VTE Prior VTE?: No VTE Risk Level:: Medical - moderate - high VTE Device Contraindication: N/A - Device Ordered VTE Drug Contraindication: Treatment Not Tolerated
[2022-10-12] MEDS: Enoxaparin Sodium 40 MG/0.4 ML SYRINGE SUBCUT (15:58)
[2022-10-12] MEDS: Acetaminophen 325 MG TABLET 650 MG PO (16:10)
[2022-10-12] MEDS: Metoclopramide HCl 10 MG/2 ML VIAL 5 MG IVPUSH (16:10)
[2022-10-12] MEDS: Docusate Sodium 100 MG CAPSULE PO (20:51)
[2022-10-12] MEDS: Sennosides 8.6 MG TABLET PO (20:51)
[2022-10-12] MEDS: 0.9 % Sodium Chloride Flush 3 ML SYRINGE IVFLUSH (21:04)
[2022-10-13] MEDS: HYDROmorphone HCl 1 MG/ML SYRINGE 0.5 MG IVPUSH ×3 (01:49→09:28)
[2022-10-13 03:28] VITALS: BP 146/69; PULSE 70; RESP 14; TEMP 37.1; O2SAT 93
[2022-10-13 08:00] VITALS: BP 135/63; PULSE 75; RESP 20; TEMP 37.2; O2SAT 92
[2022-10-13] MEDS: Atorvastatin Calcium 10 MG TABLET PO (09:29)
[2022-10-13] MEDS: Famotidine 20 MG TABLET PO (09:29)
[2022-10-13] MEDS: 0.9 % Sodium Chloride Flush 3 ML SYRINGE IVFLUSH ×2 (09:29→15:30)
[2022-10-13] MEDS: amLODIPine Besylate 2.5 MG TABLET PO (09:29)
--- NOTE | 2022-10-13 09:32 | P.PNOP_ITS ---
Subjective Subjective Date of Service: 10/13/22 Interval history: POD2 s/p right hip boby. Patient is resting in bed comfortably. No overnight events. Pain is well managed. No additional compaints. Physical Exam Vital Signs: Vital Signs: Last Vital Signs Temp 99.0 F 10/13/22 08:00 Pulse 75 10/13/22 08:00 Resp 20 10/13/22 08:00 BP 135/63 10/13/22 08:00 Pulse Ox 92 10/13/22 08:00 O2 Del Method 10/13/22 08:00 O2 Flow Rate 2 10/11/22 19:16 BMI result Body Mass Index 26.9 Const: General: cooperative, healthy appearing and no acute distress Resp: Effort & Inspection: normal respiratory effort and able to speak in complete sentences Cardio: Rate: regular rate Peripheral pulses: Peripheral pulses 2+ throughout GI: Palpation (GI): Soft to palpation Skin: Lesions: no lesions Rashes: no rashes Extrem: Other: Right hip Aquacel is c/d/i. Able to dorsiflex and plantarflex. NVI. Procedures Date of Service Date of Service: 10/13/22 Progress Note: A&P Assessment and plan (1) S/P hip hemiarthroplasty: Status: Acute Assessment and Plan: Continue pain mgmnt - Meds adjusted Continue Lovenox for dvt ppx Continue PT for rt hip boby - WBAT Dispo planning-Pain mgmnt - accepted at [facility] and planning for discharge tomorrow (2) Femoral neck fracture: Status: Acute Time Spent With Patient Time: Total time spent is greater than 50% in coordination of care (as documented) at patient's floor/unit and/or counseling patient: Quality Stroke Does the patient have a stroke diagnosis?: No VTE Prior VTE?: No VTE Risk Level:: Medical - moderate - high VTE Device Contraindication: N/A - Device Ordered VTE Drug Contraindication: Treatment Not Tolerated
[2022-10-13 10:06] LABS: Hematocrit 37.7 % (42.0-52.0); Hemoglobin 12.8 g/dl (14.0-18.0)
[2022-10-13 11:26] VITALS: BP 143/67; PULSE 75; RESP 20; TEMP 36.7; O2SAT 94
--- NOTE | 2022-10-13 12:14 | HO.PM.IMPN ---
Subjective Subjective Date of Service: 10/13/22 Interval History: hip fracture, htn Review of Systems ?Hip soreness seems? somewhat improving, denies any chest pain or shortness of breath or abdominal pain or fever chills. Physical Exam Vital Signs: Vital Signs: Last Vital Signs Temp 98.0 F 10/13/22 11:26 Pulse 75 10/13/22 11:26 Resp 20 10/13/22 11:26 BP 143/67 H 10/13/22 11:26 Pulse Ox 94 10/13/22 11:26 O2 Del Method 10/13/22 11:26 O2 Flow Rate 2 10/11/22 19:16 BMI result Body Mass Index 26.9 Appearance: Alert.? Oriented X3.? not in distress.? cvs: rrr, [id number] . res: clear to auscultation ,no rhonchii or wheezing abd: no rebound or guarding ,nt, bs present. ext pulses present , no cyanosis . right hip pain-improvin,area is clean ,no dischage. neuro: axo3 , nonfocal. Objective Data Active Medications Acetaminophen (Acetaminophen 325 Mg Tablet) 650 mg PO Q6H PRN PRN Reason: Pain, Mild (Pain Scale 1-3) Last Admin: 10/12/22 16:10 Dose: 650 mg Documented By: LASHELL Amlodipine Besylate (Amlodipine Besylate 2.5 Mg Tablet) 2.5 mg PO DAILY [facility]; Protocol Last Admin: 10/13/22 09:29 Dose: 2.5 mg Documented By: SHAAN Atorvastatin Calcium (Atorvastatin Calcium 10 Mg Tablet) 10 mg PO DAILY [facility] Last Admin: 10/13/22 09:29 Dose: 10 mg Documented By: SHAAN Celecoxib (Celecoxib 200 Mg Capsule) 200 mg PO BID [facility] Docusate Sodium (Docusate Sodium 100 Mg Capsule) 100 mg PO DAILY PRN PRN Reason: Constipation Docusate Sodium (Docusate Sodium 100 Mg Capsule) 100 mg PO BEDTIME [facility] Last Admin: 10/12/22 20:51 Dose: 100 mg Documented By: FREDRINL Enoxaparin Sodium (Enoxaparin Sodium 40 Mg/0.4 Ml Syringe) 40 mg SUBCUT Q24H [facility] Last Admin: 10/12/22 15:58 Dose: 40 mg Documented By: LASHELL Famotidine (Famotidine 20 Mg Tablet) 20 mg PO DAILY [facility] Last Admin: 10/13/22 09:29 Dose: 20 mg Documented By: SHAAN Hydromorphone HCl (Hydromorphone Hcl 1 Mg/Ml Syringe) 0.25 mg IVPUSH Q4H PRN; Protocol PRN Reason: Pain, Severe (Pain Scale 7-10) Cefazolin Sodium/Dextrose (Ancef) 2 gm in 50 mls @ 100 mls/hr IV POSTOP [facility] Metoclopramide HCl (Metoclopramide Hcl 10 Mg/2 Ml Vial) 5 mg IVPUSH Q6H PRN PRN Reason: Nausea Last Admin: 10/12/22 16:10 Dose: 5 mg Documented By: LASHELL Ondansetron HCl (Ondansetron Hcl 4 Mg/2 Ml Vial) 4 mg IVPUSH Q8H PRN PRN Reason: Nausea and Vomiting Last Admin: 10/10/22 22:24 Dose: 4 mg Documented By: DOROTHY Oxycodone HCl (Oxycodone Hcl Immed Release 5 Mg Tablet) 5 mg PO Q4H PRN PRN Reason: Pain, Moderate (Pain Scale 4-6 Oxycodone HCl (Oxycodone Hcl Er 10 Mg Tab.Er.12h) 10 mg PO BID [facility] Pharmacy Consult (Consult Rx Perform Med Rec) 1 each MISCELLANE ONCE PRN PRN Reason: Consult order Senna (Sennosides 8.6 Mg Tablet) 8.6 mg PO BEDTIME [facility] Last Admin: 10/12/22 20:51 Dose: 8.6 mg Documented By: MORRINAcosta Sodium Chloride (0.9 % Sodium Chloride Flush 3 Ml Syringe) 3 ml IVFLUSH QSHIFT [facility] Last Admin: 10/13/22 09:29 Dose: 3 ml Documented By: SHAAN Labs CBC & Chem 7: 10/13/22 09:42 10/12/22 06:02 Assessment and Plan (1) Femoral neck fracture: Status: Acute (2) HTN (hypertension): Status: Acute (3) Nausea & vomiting: Status: Acute (4) S/P hip hemiarthroplasty: Status: Acute Plan 72-year-old male otherwise healthy presents to the hospital with complaints of hip pain after a fall found to have hip fracture # right femoral neck fracture- secondary to mechanical fall, after diving after a ball on concrete - pain management ?s/p surgery day2 bowel regimen - otherwise hemodynamically stable # hypertension - stable - at this time does not take any medications continue amlodipine # GERD - continue famotidine nausea/vomiting(possible related to pain meds.: seems improving with antiemetics) DVT prophylaxis:? SCDs in anticipation of surgical intervention ongoing hospitilisation need:Given hip fracture-[place] to [place] ,need monitering Quality Stroke Does the patient have a stroke diagnosis?: No VTE Prior VTE?: No VTE Risk Level:: Medical - moderate - high VTE Device Contraindication: N/A - Device Ordered VTE Drug Contraindication: Treatment Not Tolerated
[2022-10-13] MEDS: oxyCODONE HCl Immed Release 5 MG TABLET PO ×2 (12:22→17:55)
[2022-10-13] MEDS: HYDROmorphone HCl 1 MG/ML SYRINGE 0.25 MG IVPUSH (13:50)
[2022-10-13] MEDS: Omeprazole 20 MG CAPSULE.DR PO (13:50)
[2022-10-13] MEDS: Acetaminophen 325 MG TABLET 650 MG PO (15:28)
[2022-10-13] MEDS: Enoxaparin Sodium 40 MG/0.4 ML SYRINGE SUBCUT (15:30)
--- NOTE | 2022-10-13 15:39 | PC.NURSE ---
patient reports no hick ups at present
[2022-10-13 15:42] VITALS: BP 149/56; PULSE 83; RESP 18; TEMP 36.9; O2SAT 94
[2022-10-13 19:12] VITALS: BP 145/66; PULSE 72; RESP 16; TEMP 36.5; O2SAT 95
[2022-10-13] MEDS: oxyCODONE HCl ER 10 MG TAB.ER.12H PO (19:14)
[2022-10-13] MEDS: Sennosides 8.6 MG TABLET PO (19:15)
[2022-10-13] MEDS: Celecoxib 200 MG CAPSULE PO (19:15)
[2022-10-13] MEDS: Docusate Sodium 100 MG CAPSULE PO (19:16)
[2022-10-13 23:53] VITALS: BP 135/79; PULSE 68; RESP 14; TEMP 36.3; O2SAT 95
[2022-10-14] MEDS: 0.9 % Sodium Chloride Flush 3 ML SYRINGE IVFLUSH ×2 (00:31→08:54)
[2022-10-14] MEDS: oxyCODONE HCl Immed Release 5 MG TABLET PO ×2 (00:37→13:46)
[2022-10-14 03:51] VITALS: BP 127/63; PULSE 62; RESP 15; TEMP 36.1; O2SAT 94
[2022-10-14] MEDS: Omeprazole 20 MG CAPSULE.DR PO (05:46)
--- NOTE | 2022-10-14 07:58 | PM.PNORT ---
Subjective Subjective Date of Service: 10/14/22 Interval history: POD3 s/p right hip boby. Patient is resting in bed comfortably. No overnight events. Pain is well managed. No additional compaints. Physical Exam Vital Signs: Vital Signs: Last Vital Signs Temp 97.0 F 10/14/22 03:51 Pulse 62 10/14/22 03:51 Resp 15 10/14/22 03:51 BP 127/63 10/14/22 03:51 Pulse Ox 94 10/14/22 03:51 O2 Del Method 10/14/22 03:51 O2 Flow Rate 2 10/11/22 19:16 BMI result Body Mass Index 26.9 Const: General: cooperative, healthy appearing and no acute distress Resp: Effort & Inspection: normal respiratory effort and able to speak in complete sentences Cardio: Rate: regular rate Peripheral pulses: Peripheral pulses 2+ throughout GI: Palpation (GI): Soft to palpation Skin: Lesions: no lesions Rashes: no rashes Extrem: Other: Right hip stephen intact. No erythema or drainage. New Aquacel dressing applied. Able to dorsiflex and plantarflex. NVI. Procedures Date of Service Date of Service: 10/14/22 Progress Note: A&P Assessment and plan (1) S/P hip hemiarthroplasty: Status: Acute Assessment and Plan: Continue pain mgmnt Continue Lovenox for dvt ppx Continue PT for rt hip boby - WBAT Dispo planning-Pain mgmnt, cleared for d/c to rehab from ortho perspective. Time Spent With Patient Time: Total time spent is greater than 50% in coordination of care (as documented) at patient's floor/unit and/or counseling patient: Quality Stroke Does the patient have a stroke diagnosis?: No VTE Prior VTE?: No VTE Risk Level:: Medical - moderate - high VTE Device Contraindication: N/A - Device Ordered VTE Drug Contraindication: Treatment Not Tolerated
[2022-10-14 08:00] VITALS: BP 115/53; PULSE 60; RESP 18; TEMP 36.1; O2SAT 94
[2022-10-14] MEDS: HYDROmorphone HCl 1 MG/ML SYRINGE 0.25 MG IVPUSH (08:46)
[2022-10-14] MEDS: ondansetron HCL 4 MG/2 ML VIAL IVPUSH (08:47)
[2022-10-14] MEDS: Atorvastatin Calcium 10 MG TABLET PO (08:50)
[2022-10-14] MEDS: oxyCODONE HCl ER 10 MG TAB.ER.12H PO (08:50)
[2022-10-14] MEDS: amLODIPine Besylate 2.5 MG TABLET PO (08:50)
[2022-10-14] MEDS: Celecoxib 200 MG CAPSULE PO (08:50)
[2022-10-14 10:45] LABS: COVID-19 Test Negative (Negative); IDNOW Serial# BCCEAD1C
[2022-10-14 11:36] VITALS: BP 131/59; PULSE 61; RESP 18; TEMP 37.1; O2SAT 95
--- NOTE | 2022-10-14 12:46 | MHC.CM.PN ---
2 PM FROM [facility]. PATIENT, RN, AND UNIT AWARE OF PLAN. IMM 10/13 IN CHART
--- NOTE | 2022-10-14 13:01 | P.DS_ITS ---
DS: Providers Provider Date of Service: 10/14/22 Date of admission: 10/09/22 22:25 Date of discharge: 10/14/22 Primary care physician: Jamin Nielsen MD Consults: 10/09/22 21:58 Consult to Orthopedics Stat Consulting Provider: Epifanio Rogers Reason for consultation: R femoral neck fx DS: Diagnosis Discharge Diagnosis (1) S/P hip hemiarthroplasty: Status: Acute (2) HTN (hypertension): Status: Acute (3) Nausea & vomiting: Status: Acute (4) Femoral neck fracture: Status: Acute (5) Hiccup: Status: Acute DS: Summary Hospital Course Hospital Course: ?72-year-old otherwise healthy male with past medical history of GERD presents to the hospital with complaints of falling while playing pickleball.? Patient denies any loss of consciousness, no dizziness or headache, no palpitations prior to fall.? He states that he was diving for a ball, and fell on the ground landing on his right hip on concrete.? He felt immediate significant pain and felt pain worse with movement.? He is unable to lift his right leg, he denies any numbness or tingling, he denies any chest pain, no shortness of breath, no abdominal pain nausea or vomiting, no diarrhea constipation, no urinary symptoms and no lower extremity edema.? He has otherwise been healthy and doing well On arrival to the ED patient hemodynamically stable slightly elevated blood pressure Labs reviewed, unremarkable Hip x-ray shows displaced right femoral neck fracture. Hospital course: Patient was admitted for hip fracture status post total hip arthroplasty. Pain is improving, feeling better- will go to rehab today. Please see ortho instructions below, in addition added bowel regimen and pain medication. Hypertension: Added small dose amlodipine. Mild hiccups : seems to be improving with PPI continue further management out patiently. above management discussed with the patient in detail length he understand in agreement with the above plan, time spent 50 minute. Time Spent with Patient Time attestation: Total time spent providing and/or coordinating discharge services: Discharge coordination time: Greater than 30 minutes Quality: Safe Use of Opioids Does Pt have an Active Cancer Diagnosis on the Problem List?: No Quality: Stroke Does the patient have a stroke diagnosis?: No Physical Exam Vital Signs: Vital Signs: Last Vital Signs Temp 98.7 F 10/14/22 11:36 Pulse 61 10/14/22 11:36 Resp 18 10/14/22 11:36 BP 131/59 L 10/14/22 11:36 Pulse Ox 95 10/14/22 11:36 O2 Del Method 10/14/22 11:36 O2 Flow Rate 2 10/11/22 19:16 BMI result Body Mass Index 26.9 ?Appearance: Alert.? Oriented X3.? not in distress.? cvs: rrr, [id number] . res: clear to auscultation ,no rhonchii or wheezing abd: no rebound or guarding ,nt, bs present. ext pulses present , no cyanosis . right hip pain-improvin,area is clean ,no dischage. neuro: axo3 , nonfocal. DS: Data Data Completed and Pending Pending studies at discharge: Pending at discharge 10/11/22 15:15 Surgical [PTH] Routine Labs on day of discharge: Laboratory Results - last 24 hr 10/14/22 10:05 COVID-19 ([facility]) Negative COVID-19 Clin Com See Note Imaging Chest x-ray: Radiologist's impression: ITS Impressions Hip X-Ray 10/09/22 20:42 IMPRESSION: 1. Displaced right femoral neck fracture. 2. No dislocation. Chest X-Ray 10/09/22 22:03 IMPRESSION: No acute pulmonary process. Discharge Plan Discharge Anticipated Discharge Date/Time: 10/14/22 12:34 Patient Disposition: Xfer SNF Discharge Diagnosis: htn , hip fracture Referrals: [facility] [Outside] - 1 Week Marlene Nam PA-C [Physician Hospitality Services Manager] - 10/25/22 1:15 pm Jamin Nielsen MD [Primary Care Provider] - 1 Week Discharge Medications: New sennosides [Senna Lax] 8.6 mg Tablet 8.6 mg PO BEDTIME Qty: 30 0RF omeprazole 20 mg Capsule,Delayed Release(Dr/Ec) 20 mg PO BID@0630,1630 Qty: 60 0RF acetaminophen 325 mg Tablet 650 mg PO Q6H PRN (Reason: Pain, Mild (Pain Scale 1-3)) Qty: 30 0RF oxycodone 5 mg Tablet 5 mg PO Q4H PRN (Reason: Pain, Moderate (Pain Scale 4-6) Qty: 12 0RF Rx Instructions: Partial Fill upon patient request. amlodipine 2.5 mg Tablet 2.5 mg PO DAILY Qty: 30 0RF Protocol: Hold for SBP< HOLD for SBP < : 90 enoxaparin 40 mg/0.4 mL Syringe 40 mg subcut Q24H 42 Days Qty: 16.8 0RF Continued atorvastatin 10 mg tablet 1 tab PO DAILY Discontinued famotidine 20 mg tablet 1 tab PO DAILY Discharge Orders: Discharge Order (Routine); Ordered 10/14/22 Ordered By: Jacob Jay Diet: Advance to usual diet Activity on Discharge: please see below ortho instructions Stand Alone Forms: Patient Portal Discharge page Care Plan Goals: Patient was admitted for hip fracture status post total hip arthroplasty. Pain is improving, feeling better- will go to rehab today. Please see ortho instructions below, in addition added bowel regimen and pain medication. Hypertension: Added small dose amlodipine. Mild hiccups : seems to be improving with PPI continue further management out patiently. Health Concerns: As above. Plan of Treatment: Physical Therapy for total hip arthroplasty: posterior precautions, gait training, ROM, strength Limit stair climbing No showering, no tub bath-keep dressing clean, dry and intact No driving x6 weeks Continue Lovenox once a day x 4 weeks Follow up with [facility] [place] 2 [facility] - FridayOct AT 1:15 Assessment: As well.
[2022-10-14] MEDS: Baclofen 10 MG TABLET PO (13:46)
--- NOTE | 2022-10-15 08:49 | W.PM.OPN ---
Operative Note Operative Note Date of Service: 10/11/22 Narrative: Date of Service: 10/11/22 Pre-op diagnosis: Right femoral neck fracture Post-op diagnosis: same Procedure: Right hip boby Implants: Buffy Accolade2 127 deg #6 with + 4 bipolar Surgeon: Placido Alvarez MD Anesthesia: GETA and local Was an Multiple Drill Operator used for this Procedure?: Yes Multiple Drill Operator: Epifanio Rogers Estimated blood loss (mL): 150 IV fluids (mL): 1,000 Pathology: other Condition: stable Disposition: PACU Procedure in detail: Patient was brought to the operative room placed in the lateral decubitus position. All bony prominences were well padded and the was prepped and draped in standard sterile fashion. IV antibiotics per weight were administered and a time-out was called to identify proper site proper procedure proper surgeon. Radiographs were available and confirmed. I began by making a curvilinear incision over the posterolateral aspect of the greater trochanter. Dissection was taken down to the tensor fascia which was incised in line with the incision and a Charnley retractor was placed. The hip was internally rotated and the external rotators were identified. All vessels in the area were cauterized and a full-thickness capsular/external rotator layer was developed in a hockey-stick fashion starting just proximal to the piriformis. This layer was tagged and the displaced femoral neck fracture was identified. Clean-up cuts was performed while protecxtion the posterolateral soft tissues and the head was removed and measured (52 mm) on the back table. I then copiously irrigated the acetabulum and removed all bony fragments. Once this was done I used a cookie cutter to lateralize and a Charnley awl to identify the canal and then sequentially broached up to a 127 deg #6. I then trialed with a standard head and a bipolar component matching the femoral head size. I was satisfied with the range of motion and stability and length. Therefore I removed all instrumentation and copiously irrigated. I then placed my final femoral implant and then re-trialed. I was satisfied with the length and the stability of the implants usinag a +4 trial. My final bipolar components were placed. I closed the capsular layer with FiberWire and then, after a three minute iodine soak. I performed a layered closure with stephen on skin. The patient was placed in sterile dressing extubated brought to recovery room in stable condition there were no known complications.
== END 2022-10-14 14:44 | disposition skilled nursing facility (03) | DRG 522 ==
LOC: HO.ED 21:58 → HO.EDOVER 22:41 → HO.S3 10-10 00:30
PROVIDERS: Orthopaedic Surgery; Physician Assistant; Admitting Provider Internal Medicine; Emergency Provider Internal Medicine; PCP Family Medicine; Visit Provider Internal Medicine
PROC: 0SRR0JA Replacement of Right Hip Joint, Femoral Surface with Synthetic Substitute, Uncemented, Open Approach (ICD-10-PCS; CPT 27125; principal; 2022-10-11 13:30)
DX: S72.001A Fracture of unspecified part of neck of right femur, initial encounter for closed fracture (principal); W18.30XA Fall on same level, unspecified, initial encounter; Y93.69 Activity, other involving other sports and athletics played as a team or group; Y92.318 Other athletic court as the place of occurrence of the external cause; R06.6 Hiccough; K21.9 Gastro-esophageal reflux disease without esophagitis; E78.5 Hyperlipidemia, unspecified; I10 Essential (primary) hypertension; Z20.822 Contact with and (suspected) exposure to COVID-19; Z79.899 Other long term (current) drug therapy
CPT/HCPCS: 36415; 71045; 73502; 80048; 80053; 81003; 83036; 83735; 84443; 85014; 85018; 85025; 85610; 86850; 86900; 86901; 87635; 88305; 88311; 97162; 97166; 99285; C1776; J0690; J1100; J1170; J1650; J2270; J2405; J2550; J2765; J2795; J3010

== ENCOUNTER 2022-10-25 | Outpatient (REF) | payer OTHER, MEDICARE, BC, SELFPAY ==
--- NOTE | ~2022-10-25 | XR_ITS ---
EXAMINATION: XR PELVIS CLINICAL INFORMATION: Pain COMPARISON: 10/09/2022 TECHNIQUE: AP view of the pelvis. FINDINGS: Postoperative changes related to right total hip arthroplasty. No evidence of hardware complication. On single AP view, arthroplasty appears to be in anatomic alignment. Expected postoperative changes including surgical clips and soft tissue swelling. XR/XR pelvis 1-2V IMPRESSION: Postoperative changes related to right total hip arthroplasty. No evidence of hardware complication.
== END 2022-10-25 00:01 | disposition home or self-care (01) ==
LOC: HO.HOSX
PROVIDERS: Visit Provider Physician Assistant
DX: M25.551 Pain in right hip (principal); M25.552 Pain in left hip
CPT/HCPCS: 72170; 99212

== ENCOUNTER → 2022-10-25 12:57 | Outpatient (BNVA) | payer MEDICARE, BC, SELFPAY | PROVIDERS: PCP Family Medicine; Visit Provider Physician Assistant | DX: Z47.1 Aftercare following joint replacement surgery (principal); Z96.641 Presence of right artificial hip joint | CPT/HCPCS: 99212 ==

== ENCOUNTER 2022-11-22 07:57 | Outpatient (REF) | payer MEDICARE, BC, SELFPAY ==
--- NOTE | ~2022-11-22 | XR_ITS ---
EXAMINATION: XR PELVIS CLINICAL INFORMATION: Pain COMPARISON: Pelvic radiographs 10/25/2022 TECHNIQUE: AP view of the pelvis. FINDINGS: No acute fracture or dislocation appreciated on this limited single view. Status post right total hip arthroplasty in unchanged alignment. No evidence of hardware fracture or complication. Calcified phleboliths in the pelvis. Left hip joint space is maintained. XR/XR pelvis 1-2V IMPRESSION: Status post right total hip arthroplasty in unchanged alignment. No evidence of hardware fracture or complication.
== END 2022-11-22 07:58 | disposition home or self-care (01) ==
LOC: HO.HOSX 07:57
PROVIDERS: Visit Provider Physician Assistant
DX: Z96.641 Presence of right artificial hip joint (principal)
CPT/HCPCS: 72170; 99212

== ENCOUNTER 2023-01-17 | Outpatient (REF) | payer MEDICARE, BC, SELFPAY ==
--- NOTE | ~2023-01-17 | XR_ITS ---
EXAMINATION: XR PELVIS CLINICAL INFORMATION: Hip pain COMPARISON: 11/22/2022 TECHNIQUE: AP view of the pelvis. FINDINGS: Status post right total hip arthroplasty without evidence of hardware complication. Dislocation cannot be excluded on this single AP view. Calcified phleboliths in the pelvis. Left hip joint space is maintained. XR/XR pelvis 1-2V IMPRESSION: Status post right total hip arthroplasty without evidence of hardware complication. Dislocation cannot be excluded on this single AP view.
== END 2023-01-17 00:01 | disposition home or self-care (01) ==
LOC: HO.HOSX
PROVIDERS: Visit Provider Physician Assistant
DX: Z47.1 Aftercare following joint replacement surgery (principal); Z96.641 Presence of right artificial hip joint
CPT/HCPCS: 72170

== ENCOUNTER 2023-04-10 08:45 | Outpatient (REF) | payer MEDICARE, BC, SELFPAY ==
--- NOTE | ~2023-04-10 | XR_ITS ---
EXAMINATION: XR PELVIS CLINICAL INFORMATION: Pain COMPARISON: Previous x-ray most recent December 2022 TECHNIQUE: AP view of the pelvis. FINDINGS: There is a right hip replacement in satisfactory position. No fracture, dislocation or x-ray evidence of loosening. Normal left hip joint. Question arthritis at the sacroiliac joints and ankylosis on the left. Degenerative changes of the visualized lower lumbar spine. Soft tissues are unremarkable. XR/XR pelvis 1-2V IMPRESSION: Satisfactory appearance of right hip replacement.
== END 2023-04-10 08:46 | disposition home or self-care (01) ==
LOC: HO.HOSX 08:45
PROVIDERS: Visit Provider Physician Assistant
DX: M25.551 Pain in right hip (principal); Z96.641 Presence of right artificial hip joint
CPT/HCPCS: 72170; 99212

== ENCOUNTER → 2023-05-22 13:28 | Outpatient (BNVA) | payer MEDICARE, BC, SELFPAY | PROVIDERS: PCP Family Medicine; Visit Provider Orthopaedic Surgery | DX: Z96.641 Presence of right artificial hip joint (principal) | CPT/HCPCS: 99212 ==

== ENCOUNTER 2023-07-07 15:00 | Outpatient (RCR) | payer MEDICARE, BC, SELFPAY ==
--- NOTE | 2023-06-13 15:52 | MHC.PT.EP ---
[facility] [place] Office [place] Office [place] Office [address]iner [address] [phone] F: [phone] F: [phone] F: [phone] F: [phone] Physical Therapy Plan of Care Date of Evaluation: Date of Surgery: 10/11/2022 Diagnosis: Gait training, strengthening, hx of R hip hemiarthroplasty Assessment: Ferny is a 72 yo male referred to PT for Gait training, strengthening, hx of R hip hemiarthroplasty . Pt reports he had a hip (neck of femur) fracture while playing [place] ball and had a partial R hip replacement 7 months ago (10/11/22). On PT examination signs and symptoms suggestive of glute med/max tendinopathy and R hip bursitis. Other impairments include decreased HS length, tight ITB, weak hip extensors, TTP/pain at R greater trochanter/ITB, and decreased R hip strength. Functional limitations include inability to ambulate more than 45 min w/o R hip pain and inability to negotiate stairs quickly. PT to include STM, LE stretches/strength, US, hot/cold pack, pt education, HEP, and pt education on progressing exercises. Frequency and Duration: The patient will be seen 2x a week for 4 weeks. Short Term Goals: In 2 weeks... 1. Pt will be I with HEP 2. Pt will increase B ITB length in order to improve ability/tolerance to playing golf Switchboard Clerk Goals: In 4 weeks... 1. Pt will improve LE strength by 1 MMT point to be able to ambulate for >45 min w/o increase in R hip pain 2. Pt will have no more than 1/10 R hip/trochanter pain while ascending the stairs quickly Treatment Plan: Modalities to reduce pain, spasms and effusion. Manual therapy to restore motion and function. Therapeutic exercise to improve strength and flexibility. Neuromuscular re-education for posture and balance. Therapeutic activities to return to functional activities of daily living. Electronically signed by: Desi Mckeon PT DPT Please sign and return to therapist. Thank you for your referral.
--- NOTE | 2023-07-07 16:12 | MHC.PT.DC ---
[facility] [place] Office [place] Office [place] Office [address] Gayle Gardiner [address] [phone] F: [phone] F: [phone] F: [phone] F: [phone] Physical Therapy Discharge Report Diagnosis: Gait training, strengthening, hx of R hip hemiarthroplasty Date of Surgery: 10/11/2022 Date of Evaluation: 06/13/23 Date of Discharge: 07/07/23 Treatments to Date: 6 Cancellations to Date: No Shows to Date: Discharge Status: Achieved Goals Improved Function Discharge Summary: Ferny has completed 6 PT visits and has made significant improvements. He has achieved all goals set for him and has returned to PLOF. He is independent will all his HEP. He is therefore being d/c from PT. Ferny is in agreement with the plan. Electronically signed by: Desi Mckeon PT DPT Please sign and return to therapist. Thank you for your referral.
== END 2023-07-07 16:12 | disposition home or self-care (01) ==
LOC: HO.PT 15:00
PROVIDERS: PCP Family Medicine; Visit Provider Orthopaedic Surgery
DX: Z96.641 Presence of right artificial hip joint (principal)
CPT/HCPCS: 97110; 97140; 97161; 97530